=== PATIENT | female | born 1960 | race Caucasian/White ===

== ENCOUNTER 2016-10-20 08:06 | Inpatient (IN) | payer OTHER ==
[~2016-10-20] VITALS: Ht 167.6 cm; Wt 87.2 kg
[2016-10-20] MEDS ORDERED: LISI10TA PO (08:44)
[2016-10-27] MEDS ORDERED: NEOSTIGMINE 3 MG/3 ML SYR IV ONE (07:58)
[2016-10-27] MEDS ORDERED: PHENYLEPH/NS 1000 MCG/10 ML SYR IV ONE (07:58)
[2016-10-27] MEDS ORDERED: ONDANSETRON HCL 4 MG/2 ML VIAL IV PUSH ONE (07:58)
[2016-10-27] MEDS ORDERED: PROPOFOL 200 MG/20 ML AMP IV ONE (07:58)
[2016-10-27] MEDS ORDERED: LACTATED RINGER'S 1000 ML INJ 1,000 ML IV ONE (07:59)
--- NOTE | 2016-10-27 11:39 | PD.HP.UP ---
H&P Update Note The Pre-Admit History and Physical Examination regarding the above named patient was reviewed (including, but not limited to, vital signs, heart, lungs, co-morbid conditions), and upon re-examination it is noted that: the patient's condition has not significantly changed since the last examination. Joseph Teran MD Oct 27, 2016 11:38
[2016-10-27 12:05] VITALS: BP 115/75; PULSE 73; RESP 20; TEMP 97.3; O2SAT 98
[2016-10-27] MEDS ORDERED: ceFAZolin INJ 1,000 MG VIAL ONE (12:16)
[2016-10-27] MEDS ORDERED: SODIUM CHLORIDE 0.9% INJ 100 ML ONE (12:16)
[2016-10-27] MEDS ORDERED: ALVIMOPAN 12 MG CAPSULE ONE (12:16)
[2016-10-27] MEDS ORDERED: metroNIDAZOLE 500 MG INJ 100 ML IV ONE (12:16)
[2016-10-27] MEDS ORDERED: LACTATED RINGER'S 1000 ML INJ 1,000 ML ONE (12:16)
[2016-10-27] MEDS ORDERED: BUPIVACAINE HCL PF 0.5% 30 ML VIAL ONE ×3 (13:26→15:01)
--- NOTE | 2016-10-27 15:26 | HHI.PR ---
Immediate Post Op Note Procedure Date: Oct 27, 2016 Pre Op Diagnosis: [place]-vesical fistula Post Op Diagnosis: same Surgeon: Joseph Teran Project Scientist(s): Ginger Procedure: Exploratory lap + LAR, omental flap Findings: seg of rectosigm stuck to apex of vaginal c/w fistula liver/GB normal ut/ov absent full lt mobilization Complications: none Specimen(s) removed: rectosigm Estimated blood loss: 100cc Anesthesia: General Drains: SABIHA IVF Patient to: PACU Patient Condition: Good Joseph Teran MD Oct 27, 2016 15:25
[2016-10-27] MEDS ORDERED: Post-op Orders (for Pharmacy) MISC XX ONE (15:30)
[2016-10-27] MEDS ORDERED: ACETAMINOPHEN/HYDROcodone 325 MG/5 MG TAB PO PRN (15:30)
[2016-10-27] MEDS ORDERED: BENZOCAINE 6 MG/MENTHOL 10 MG LOZENGE SUCK-ON PRN (15:30)
[2016-10-27] MEDS ORDERED: ENALAPRILAT 2.5 MG/2 ML VIAL IV PRN (15:30)
[2016-10-27] MEDS ORDERED: KETOROLAC TROMETHAMINE 30 MG/ML (IVP) VIAL IVP PRN (15:30)
[2016-10-27] MEDS ORDERED: BUPIVACAINE HCL PF 0.5% 30 ML VIAL NB SCH (15:30)
[2016-10-27] MEDS ORDERED: POTASSIUM CHLOR 20 MEQ PREMIX 100 ML IV PRN (15:30)
[2016-10-27] MEDS ORDERED: POTASSIUM CHLOR 40 MEQ PREMIX 100 ML IV PRN (15:30)
[2016-10-27] MEDS ORDERED: NALOXONE HCL 0.4 MG/ML AMP IV PRN (15:30)
[2016-10-27] MEDS ORDERED: ENALAPRILAT 1.25 MG/ML VIAL IV PRN (15:30)
[2016-10-27] MEDS ORDERED: SODIUM CHLORIDE 0.9% FLUSH 5 ML FLUSH IVF PRN (15:30)
[2016-10-27] MEDS ORDERED: *morphine SULFATE 8 MG/ML PERIprocedure ONLY ONE ×3 (15:34→16:03)
[2016-10-27] MEDS ORDERED: ACETAMINOPHEN 1000 MG/100 ML VIAL IV ONE (15:35)
[2016-10-27] MEDS ORDERED: fentaNYL CITRATE 250 MCG/5 ML AMP ONE (15:38)
[2016-10-27] MEDS: MORPHINE SULFATE 30 MG/30 ML PCA IV SCH (16:00)
[2016-10-27] MEDS: D5-NS + KCL 20 MEQ INJ 1,000 ML IV SCH ×2 (16:00→22:34)
[2016-10-27 17:30] VITALS: PULSE 74
[2016-10-27 17:42] VITALS: BP 118/78; PULSE 74; RESP 14; TEMP 97.5; O2SAT 95
[2016-10-27 19:00] VITALS: BP 91/60; PULSE 80; RESP 18; TEMP 97.8; O2SAT 95
[2016-10-27 19:39] VITALS: O2SAT 95
[2016-10-27] MEDS: SODIUM CHLORIDE 0.9% FLUSH 5 ML FLUSH IVF SCH (20:10)
[2016-10-27] MEDS: METOCLOPRAMIDE HCL 10 MG/2 ML VIAL IVS SCH (20:10)
[2016-10-27] MEDS: metroNIDAZOLE 500 MG INJ 100 ML IV SCH (20:10)
[2016-10-27 23:00] VITALS: BP 100/60; PULSE 81; RESP 18; TEMP 98.2; O2SAT 94
[2016-10-28] VITALS (8 sets, daily range): BP systolic 104–131; BP diastolic 59–77; PULSE 88–106; RESP 18–20; TEMP 97.7–98.3; O2SAT 93–97
[2016-10-28] MEDS: D5-NS + KCL 20 MEQ INJ 1,000 ML IV SCH ×4 (04:00→20:32)
[2016-10-28] MEDS: metroNIDAZOLE 500 MG INJ 100 ML IV SCH ×2 (05:00→13:28)
[2016-10-28 05:08] LABS: AUTOMATED NEUTROPHIL # 16.8 TH/MM3 (1.8-7.7); BASOPHIL # 0.1 TH/MM3 (0-0.2); BASOPHIL % 0.3 % (0.0-2.0); HEMO FLAGS DIFF FINAL; LYMPH % 3.5 % (9.0-44.0); LYMPHOCYTE # 0.7 TH/MM3 (1.0-4.8); MEAN CELL VOLUME 92.4 FL (80.0-100.0); MEAN CORPUSCULAR HEMOGLOBIN 30.8 PG (27.0-34.0); MEAN CORPUSCULAR HGB CONC 33.4 % (32.0-36.0); MONO % 6.4 % (0.0-8.0); NEUT % 89.8 % (16.0-70.0); PLATELET COUNT 363 TH/MM3 (150-450); RED BLOOD COUNT 4.54 MIL/MM3 (4.00-5.30); RED CELL DISTRIBUTION WIDTH 13.7 % (11.6-17.2); WHITE BLOOD COUNT 18.8 TH/MM3 (4.0-11.0)
[2016-10-28 05:39] LABS: BICARBONATE 26.9 MEQ/L (21.0-32.0); POTASSIUM 4.7 MEQ/L (3.5-5.1)
[2016-10-28] MEDS: ONDANSETRON HCL 4 MG/2 ML VIAL IV PRN (06:35)
[2016-10-28] MEDS: PANTOPRAZOLE SOD 40 MG DELAYED RELEASE TAB PO SCH (09:00)
[2016-10-28] MEDS ORDERED: NON-FORMULARY DRUG (Lisinopril-Hctz 1 TAB) PO SCH (09:00)
[2016-10-28] MEDS: MORPHINE SULFATE 30 MG/30 ML PCA IV SCH (09:04)
[2016-10-28] MEDS: PANTOPRAZOLE SODIUM 40 MG VIAL IVP SCH (09:11)
[2016-10-28] MEDS: SODIUM CHLORIDE 0.9% FLUSH 5 ML FLUSH IVF SCH ×2 (09:12→20:33)
[2016-10-28] MEDS: ALVIMOPAN 12 MG CAPSULE PO SCH ×2 (09:13→20:33)
[2016-10-28] MEDS: METOCLOPRAMIDE HCL 10 MG/2 ML VIAL IVS SCH ×2 (09:13→20:33)
[2016-10-28] MEDS: HYDROCHLOROTHIAZIDE 25 MG TAB PO SCH (09:14)
[2016-10-28] MEDS: LISINOPRIL 10 MG TAB PO SCH (09:15)
--- NOTE | 2016-10-28 13:13 | HHI.PR ---
Subjective Remarks C/R Surg POD #1 afebrile, VSS UO good SABIHA min Objective - Vital Signs Date Time Temp Pulse Resp B/P Pulse Ox O2 Delivery O2 Flow Rate FiO2 10/28/16 11:00 97.7 88 18 107/63 93 10/28/16 07:00 Nasal Cannula 2.00 Result Diagram: 10/28/164 10/28/16443 Objective Remarks PE alert Abd - soft, flat, wound dry A/P Assessment and Plan Imp: stable post-op OOB decr IVF tx to floor Joseph Teran MD Oct 28, 2016 13:13
[2016-10-28] MEDS: PCA - TOTAL MG MORPHINE DELIVERED PER SHIFT SCH ×2 (14:00→20:34)
[2016-10-28] MEDS: ACETAMINOPHEN 325 MG TAB PO PRN (20:33)
[2016-10-29] VITALS (11 sets, daily range): BP systolic 115–146; BP diastolic 70–92; PULSE 85–106; RESP 20; TEMP 97.8–98.9; O2SAT 93–97
[2016-10-29] MEDS: ACETAMINOPHEN 325 MG TAB PO PRN ×2 (03:32→19:17)
[2016-10-29] MEDS: PCA - TOTAL MG MORPHINE DELIVERED PER SHIFT SCH ×2 (06:00→14:00)
[2016-10-29 06:32] LABS: AUTOMATED NEUTROPHIL # 12.4 TH/MM3 (1.8-7.7); BASOPHIL % 0.2 % (0.0-2.0); EOSINOPHIL % 0.1 % (0.0-4.0); HEMATOCRIT 34.9 % (35.0-46.0); HEMO FLAGS DIFF FINAL; LYMPH % 12.3 % (9.0-44.0); LYMPHOCYTE # 1.9 TH/MM3 (1.0-4.8); MEAN CELL VOLUME 91.9 FL (80.0-100.0); MEAN CORPUSCULAR HEMOGLOBIN 30.9 PG (27.0-34.0); MEAN CORPUSCULAR HGB CONC 33.6 % (32.0-36.0); MONO % 9.4 % (0.0-8.0); PLATELET COUNT 289 TH/MM3 (150-450); RED CELL DISTRIBUTION WIDTH 13.9 % (11.6-17.2); WHITE BLOOD COUNT 15.8 TH/MM3 (4.0-11.0)
[2016-10-29 06:58] LABS: BICARBONATE 29.3 MEQ/L (21.0-32.0); POTASSIUM 4.1 MEQ/L (3.5-5.1)
[2016-10-29] MEDS: D5-NS + KCL 20 MEQ INJ 1,000 ML IV SCH ×2 (07:18→12:02)
[2016-10-29] MEDS: PANTOPRAZOLE SODIUM 40 MG VIAL IVP SCH (09:24)
[2016-10-29] MEDS: METOCLOPRAMIDE HCL 10 MG/2 ML VIAL IVS SCH (09:24)
[2016-10-29] MEDS: SODIUM CHLORIDE 0.9% FLUSH 5 ML FLUSH IVF SCH ×2 (09:24→20:40)
[2016-10-29] MEDS: ALVIMOPAN 12 MG CAPSULE PO SCH ×2 (09:24→20:40)
[2016-10-29] MEDS: HYDROCHLOROTHIAZIDE 25 MG TAB PO SCH (09:25)
[2016-10-29] MEDS: PANTOPRAZOLE SOD 40 MG DELAYED RELEASE TAB PO SCH (09:25)
[2016-10-29] MEDS: LISINOPRIL 10 MG TAB PO SCH (09:25)
[2016-10-29] MEDS ORDERED: PNEUMOCOCCAL POLYVALENT INJ 25 MCG/0.5 ML SYR IM ONE (10:00)
[2016-10-29] MEDS: MORPHINE SULFATE 30 MG/30 ML PCA IV SCH (17:22)
[2016-10-29] MEDS ORDERED: METOCLOPRAMIDE HCL 10 MG/2 ML VIAL IVS PRN (18:15)
[2016-10-29] MEDS: ACETAMINOPHEN/HYDROcodone 325 MG/5 MG TAB PO PRN (20:44)
--- NOTE | 2016-10-29 22:04 | HHI.PR ---
Subjective Remarks C/R Surg POD #2 afebrile, VSS UO good SABIHA mod Objective - Vital Signs Date Time Temp Pulse Resp B/P Pulse Ox O2 Delivery O2 Flow Rate FiO2 10/29/16 20:00 98.4 88 20 146/91 94 10/29/16 20:00 Room Air 10/28/16 07:00 2.00 Result Diagram: 10/29/16 0536 10/29/16 05 Objective Remarks PE alert Abd - soft, flat, wound dry, +flatus A/P Assessment and Plan Imp: stable post-op OOB decr IVF adv diet leave Joseph Agee MD Oct 29, 2016 22:04
[2016-10-30] MEDS: ACETAMINOPHEN/HYDROcodone 325 MG/5 MG TAB PO PRN ×5 (01:26→22:35)
[2016-10-30] MEDS: D5-NS + KCL 20 MEQ INJ 1,000 ML IV SCH ×2 (01:27→19:51)
[2016-10-30 01:45] VITALS: BP 140/84; PULSE 91; RESP 18; TEMP 97.3; O2SAT 94
[2016-10-30] MEDS: LISINOPRIL 10 MG TAB PO SCH (07:53)
[2016-10-30] MEDS: PANTOPRAZOLE SOD 40 MG DELAYED RELEASE TAB PO SCH (07:53)
[2016-10-30] MEDS: ALVIMOPAN 12 MG CAPSULE PO SCH ×2 (07:53→21:01)
[2016-10-30] MEDS: HYDROCHLOROTHIAZIDE 25 MG TAB PO SCH (07:54)
[2016-10-30] MEDS: PANTOPRAZOLE SODIUM 40 MG VIAL IVP SCH (07:54)
[2016-10-30] MEDS: SODIUM CHLORIDE 0.9% FLUSH 5 ML FLUSH IVF SCH ×2 (07:54→21:02)
[2016-10-30 08:00] VITALS: BP 119/75; PULSE 98; RESP 20; TEMP 96.2; O2SAT 95
--- NOTE | 2016-10-30 09:40 | HHI.PR ---
Subjective Remarks Tolerating liquids but had Nausea and small emesis this AM. No BMs. Objective Vital Signs Date Time Temp Pulse Resp B/P Pulse Ox O2 Delivery O2 Flow Rate FiO2 10/30/16 08:00 96.2 98 20 119/75 95 10/30/16 02:26 20 10/30/16 02:00 Room Air 10/30/16 01:45 97.3 91 18 140/84 94 10/29/16 20:00 98.4 88 20 146/91 94 10/29/16 20:00 96 Room Air 10/29/16 17:22 18 10/29/16 15:00 98.2 93 20 143/89 95 10/29/16 15:00 94 10/29/16 14:00 20 10/29/16 11:00 85 10/29/16 11:00 98.0 96 20 142/92 97 I/O 10/29/16 10/29/16 10/29/16 10/30/16 10/30/16 10/30/16 07:00 15:00 23:00 07:00 15:00 23:00 Intake Total 1040 ml 1627 ml 240 ml Output Total 360 ml 3150 ml 2000 ml Balance 680 ml -1523 ml -1760 ml Intake Oral 240 ml 720 ml 240 ml IV Total 800 ml 907 ml Output Urine Total 350 ml 3100 ml 2000 ml Drainage Total 10 ml 50 ml # Voids 1 # Bowel Movements 0 0 0 Result Diagram: 10/29/16 0536 10/29/1636 Objective Remarks VS-S Abd: soft,wound clean. Sitting in chair. I&Os OK Assessment and Plan Assessment and Plan Stable POD#3 Not ready for D/C. Advance to soft diet. Ambulate. Continue lurdes, SABIHA, and On-Q till empty Rodri Verde MD Oct 30, 2016 09:40
[2016-10-30 12:00] VITALS: BP 123/73; PULSE 94; RESP 20; TEMP 96.6; O2SAT 95
[2016-10-30] MEDS: ONDANSETRON HCL 4 MG/2 ML VIAL IV PRN (12:18)
[2016-10-30 16:00] VITALS: BP 147/83; PULSE 92; RESP 20; TEMP 97.2; O2SAT 95
[2016-10-30 20:00] VITALS: BP 133/74; PULSE 87; RESP 18; TEMP 97.9; O2SAT 98
[2016-10-30 23:51] VITALS: BP 130/77; PULSE 89; RESP 18; TEMP 98.6; O2SAT 96
[2016-10-31] MEDS: ACETAMINOPHEN/HYDROcodone 325 MG/5 MG TAB PO PRN ×3 (03:27→14:03)
[2016-10-31] MEDS: HYDROCHLOROTHIAZIDE 25 MG TAB PO SCH (07:52)
[2016-10-31] MEDS: ALVIMOPAN 12 MG CAPSULE PO SCH (07:52)
[2016-10-31] MEDS: PANTOPRAZOLE SODIUM 40 MG VIAL IVP SCH (07:53)
[2016-10-31] MEDS: PANTOPRAZOLE SOD 40 MG DELAYED RELEASE TAB PO SCH (07:53)
[2016-10-31] MEDS: LISINOPRIL 10 MG TAB PO SCH (07:53)
[2016-10-31] MEDS: SODIUM CHLORIDE 0.9% FLUSH 5 ML FLUSH IVF SCH (07:54)
[2016-10-31 08:00] VITALS: BP 133/79; PULSE 93; RESP 20; TEMP 95.7; O2SAT 93
[2016-10-31] MEDS: ONDANSETRON HCL 4 MG/2 ML VIAL IV PRN (08:33)
[2016-10-31] MEDS: D5-NS + KCL 20 MEQ INJ 1,000 ML IV SCH (10:27)
--- NOTE | 2016-10-31 11:21 | HHI.DCPOC ---
Discharge Care Plan Your Health Problems Are: Incision/Drains Appetite Changes Irregular Bowel Function Exercise Tolerance Goals to Promote Your Health * To prevent worsening of your condition and complications * To maintain your health at the optimal level Directions to Meet Your Goals Take your medications as prescribed Follow your dietary instruction Follow activity as directed Keep your appointments as scheduled Take your immunizations and boosters as scheduled If your symptoms worsen call your PCP, if no PCP go to Urgent Care Center or Emergency Room Smoking is Dangerous to Your Health. Avoid second hand smoke Call the 24-hour hour crisis hotline for domestic abuse at Rodri Verde MD Oct 31, 2016 11:21
[2016-10-31 12:00] VITALS: BP 129/76; PULSE 87; RESP 18; TEMP 96.4; O2SAT 96
--- NOTE | 2016-11-01 11:10 | MP ---
cc: INES LO M.D. DATE OF SURGERY November 01, 2016 PREOPERATIVE DIAGNOSIS Colovaginal fistula. PROCEDURE Exploratory laparotomy with proctosigmoidectomy and low pelvic anastomosis, omental flap. POSTOPERATIVE DIAGNOSIS Diverticular disease with colovaginal fistula. SURGEON Dr. Lo ACADEMIC ADMINISTRATOR Dr. Ian Miles PROCEDURE The patient was placed in the supine position. After adequate general anesthesia, her legs were placed in [place] stirrups and supported appropriately. The abdomen and perineum were then prepped with Betadine solution and draped in the usual sterile fashion. With Dr. Miles's assistance the abdomen was opened through an infraumbilical transverse incision dividing the rectus muscles with electrocautery. Exploration revealed thickening and chronic changes of the sigmoid/rectosigmoid colon which appeared to be stuck down to the left pelvic sidewall and to the vaginal apex. There were no acute inflammatory changes. The proximal colon was palpated and felt to be pretty unremarkable. The small bowel was run from ligament of Treitz down to the ileocecal valve and felt to be normal. The liver was unremarkable. The stomach and duodenum were normal. The uterus and ovaries were surgically absent. The gallbladder was unremarkable as well. First the sigmoid colon was mobilized medially by dividing along the white line of Toldt. The left ureter was identified and carefully preserved. Dissection then proceeded up the left gutter taking down attachments to the retroperitoneum, mobilizing the splenic flexure, entering the lesser sac, taking the gastrocolic omentum off the transverse colon. The right retroperitoneal space was then opened and the bowel dissected off the presacral fascia. The pedicle for the superior hemorrhoidal vessel was identified and divided between Adore's obtaining hemostasis with Vicryl ties. The left colic vessels were similarly taken and ligated with Vicryl ligatures. After full mobilization, the rectum was dissected off the presacral fascia down to the pelvic floor. Anteriorly there appeared to be adhesions between the colon and the vaginal apex and these were divided, releasing the attachments to the vaginal apex. At a point in the proximal rectum, the mesorectum was taken between Adore's, ligating the proximal end with a Vicryl tie. The bowel was then finally divided between a pursestring suture device and a Ceasar clamp. The colon was incised to reach the rectal pouch without tension and with good blood supply, dividing the marginal artery at the appropriate point. The bowel was then divided between a pursestring suture device and a Ceasar clamp. The end of the bowel was sized to accept an EEA stapling anvil and this was secured with a pursestring suture. Dr. Miles then inserted the EEA stapling instrument transanally under direct vision. It was brought up to the end of the rectal pouch and the pursestring suture tied. The stapler was then reassembled, the bowel aligned properly, the stapler closed and fired. Upon withdrawal two complete doughnuts of tissue was seen. Gentle insufflation did confirm an airtight anastomosis. The abdomen was then irrigated copiously with normal saline. A weakened area in the bladder dome was oversewn with a running 3-0 chromic catgut suture and reinforced with a 3-0 Vicryl suture along the muscle layer, muscle and peritoneum. A Sabino-Patel drain was then placed down into the presacral space and brought up through a stab wound in the right lower quadrant, secured to the skin with a nylon suture. The omentum was passed down the left gutter and wrapped around the anastomosis and from the vaginal apex and previous fistulous opening. The transverse incision was then closed anatomically in two layers using #1 PDS sutures to reapproximate the respective fascial layers. On-Q catheters were placed into the rectus sheath on both sides and brought up through subcutaneous tunnels above the transverse incision. The subcu tissue was irrigated copiously and the skin closed with a running subcuticular Vicryl suture. The wound area was washed with normal saline and dried, sterile dressing of Telfa and gauze applied. The patient tolerated the procedure quite well and was brought to the recovery room in stable condition. Sponge and needle counts were correct at the end of the procedure. MD ANY Portillo/KADY /11:16 PM /10:01 AM
--- NOTE | 2016-12-14 13:30 | MD ---
cc: INES LO M.D., GOAR MD ADMISSION DATE: 10/27/2016 DISCHARGE DATE: 10/31/2016 PROCEDURE NOTE October 27, 2016, exploratory laparotomy with proctosigmoidectomy, low pelvic anastomosis, omental flap. DISCHARGE DIAGNOSES Diverticular disease with colovaginal fistula. HISTORY OF PRESENT ILLNESS Ms. Gallego is a 56-year-old female who is in relatively good health noticing stool coming from her vagina now for several weeks. She has a pressure sensation in the lower abdomen as well. UA has showed several urinary tract infections. Normally goes to the bathroom in small amounts. Denies any fever. No nausea or vomiting. No abdominal distension. Denies any rectal bleeding. Stool control is fairly good. Does not require a pad except for the vaginal discharge. No rectal prolapse or melena. Appetite good. Preop colon evaluation was pretty unremarkable with a fistula seen in the apex of the vagina. The patient's appetite has been good. Her weight has been stable at about 188 pounds. The patient is admitted at this time for definitive surgical resection. Please see her history and physical for more complete past medical and surgical history. PERTINENT PHYSICAL This is a very pleasant well-developed female in no acute distress. ABDOMEN: Very soft and benign. No distension, rebound, guarding or any masses noted. ANAL INSPECTION: Revealed benign canal. Digital exam reveals good tone with some thickening in the pelvis, but no mucosal irregularity and no blood on the finger. HOSPITAL COURSE After admission, the patient was taken to the operating room on October 27, 2016 at which point she underwent an exploratory laparotomy with proctosigmoidectomy and low pelvic anastomosis and omental flap. She was found to have a very narrow, very limited segment of rectosigmoid stuck to the apex of the vagina consistent with the colovaginal fistula. The remainder of the abdominal exploration was pretty unremarkable. She tolerated the procedure quite well. Her GI tract function returned fairly promptly and her diet was advanced accordingly. She was able to ambulate with minimal assistance. Bowel function continued to improve. Her [place] catheter was discontinued and she had no trouble voiding. The patient was ambulating, having stools and considered ready for discharge home on the October 31, 2016. Final pathology report did show a segment of rectosigmoid with diverticular disease and pinpoint transmural defect consistent with a colovaginal fistula. No malignancy was identified. DISCHARGE INSTRUCTIONS The patient was discharged eating a regular diet. She was encouraged to ambulate daily avoiding any heavy lifting or straining. All preop medications were to be resumed. The patient will be seen in the office in one weeks' time for routine follow-up. Any problems prior to the scheduled office visit, she was encouraged to call for more urgent attention. MD ANY Portillo/MIHIR /8:52 PM /1:23 PM
== END 2016-10-31 16:00 | disposition home or self-care (01) | DRG 330 ==
LOC: HSDI 10-27 10:59 → EDUNIT# 10-27 13:00 → HCVR 10-27 17:27 → HCIS 10-28 16:58 → N07B 10-30 01:02
PROVIDERS: ADMIT Colon & Rectal Surgery; ATTEND Colon & Rectal Surgery
PROC: 0DBN0ZZ Excision of Sigmoid Colon, Open Approach (ICD-10-PCS; 2016-10-27)
PROC: 0DBP0ZZ Excision of Rectum, Open Approach (ICD-10-PCS; principal; 2016-10-27 13:00)
DX: K57.30 Diverticulosis of large intestine without perforation or abscess without bleeding (principal); N82.3 Fistula of vagina to large intestine; I10 Essential (primary) hypertension; R11.2 Nausea with vomiting, unspecified; Z87.891 Personal history of nicotine dependence
CPT/HCPCS: 80048; 85025; 86850; 86900; 86901; 88307; 94150; C9113; J0131; J0690; J2270; J2370; J2405; J2710; J2765; J3010; J3480; J7120

== ENCOUNTER → 2016-10-20 | Outpatient (CLI) | payer OTHER ==
[~2016-10-20] MED LIST: LISI10TA PO
[2016-10-20 08:52] LABS: AUTOMATED NEUTROPHIL # 3.6 TH/MM3 (1.8-7.7); BASOPHIL # 0.1 TH/MM3 (0-0.2); EOSINOPHIL # 0.2 TH/MM3 (0-0.4); EOSINOPHIL % 3.1 % (0.0-4.0); HEMATOCRIT 45.7 % (35.0-46.0); HEMO FLAGS DIFF FINAL; LYMPHOCYTE # 3.3 TH/MM3 (1.0-4.8); MEAN CELL VOLUME 92.4 FL (80.0-100.0); MEAN CORPUSCULAR HEMOGLOBIN 30.8 PG (27.0-34.0); MEAN CORPUSCULAR HGB CONC 33.3 % (32.0-36.0); MONO % 9.2 % (0.0-8.0); NEUT % 45.7 % (16.0-70.0); PLATELET COUNT 400 TH/MM3 (150-450); RED BLOOD COUNT 4.95 MIL/MM3 (4.00-5.30); RED CELL DISTRIBUTION WIDTH 13.9 % (11.6-17.2)
[2016-10-20 09:06] LABS: BLOOD, URINE NEG (NEG); COMMENT (UR) CULT NOT INDICATED; CULTURE IF INDICATED CULT NOT INDICATED; GLUCOSE,URINE NEG (NEG); KETONE, URINE NEG (NEG); MUCUS URINE FEW /lpf (OCC); NITRITE,URINE NEG (NEG); PH, URINE 5.5 (5.0-8.5); SQUAMOUS EPITHELIAL CELL URINE 2 /hpf (0-5); URINE COLOR LIGHT-YELLOW (YELLW/STRAW)
[2016-10-20 09:06] LABS: APTT (PATIENT) 28.2 SEC (24.3-30.1); PROTHROMBIN TIME - PATIENT 10.5 SEC (9.8-11.6)
[2016-10-20 09:18] LABS: ANION GAP 5 MEQ/L (5-15); AST (GOT) 10 U/L (15-37); BICARBONATE 31.2 MEQ/L (21.0-32.0); BLOOD UREA NITROGEN 20 MG/DL (7-18); CHLORIDE 103 MEQ/L (98-107); GLOMERULAR FILTRATION RATE 64 ML/MIN (>89); GLUCOSE,FASTING 93 MG/DL (74-99); POTASSIUM 4.6 MEQ/L (3.5-5.1); SODIUM (NA) 139 MEQ/L (136-145)
--- NOTE | 2016-10-20 09:20 | RADRPT ---
EXAM DATE/TIME: 10/20/2016 09:05 [place] COMPARISON: No previous studies available for comparison. INDICATIONS : Evaluate for penumonia, pneumothorax, or communicable disease. Pre op for removal of vaginal rectal f istula. MEDICAL HISTORY : None. SURGICAL HISTORY : None. ENCOUNTER: Initial ACUITY: 1 day PAIN SCORE: 0/10 LOCATION: chest FINDINGS: PA and lateral views of the chest demonstrate the lungs to be symmetrically aerated without evidence of mass, infiltrate or effusion. The cardiomediastinal contours are unremarkable. Osseous structure s are intact. CONCLUSION: No acute disease. Milton Palmer MD FACR on October 20, 2016 at 9:18 Board Certified Radiologist. This report was verified electronically.
[2016-10-20 09:21] LABS: ALKALINE PHOSPHATASE 85 U/L (45-117); ALT (GPT) 28 U/L (10-53); TOTAL BILIRUBIN ADULT 0.4 MG/DL (0.2-1.0)
--- NOTE | 2016-10-22 00:07 | EKG ---
Date Performed: 10/20/2016 Time Performed: 08:34:29 PTAGE: 56 years EKG: Sinus rhythm WITH SINUS ARRHYTHMIA NORMAL ECG NO PREVIOUS TRACING DOCTOR: Jamison Gaffney Interpretating Date/Time 10/22/2016 00:06:41
== END ==
LOC: CPRE 08:01
PROVIDERS: ATTEND Colon & Rectal Surgery
DX: Z01.810 Encounter for preprocedural cardiovascular examination (principal); Z01.811 Encounter for preprocedural respiratory examination; Z01.812 Encounter for preprocedural laboratory examination; N82.3 Fistula of vagina to large intestine
CPT/HCPCS: 36415; 71020; 80053; 81001; 85025; 85610; 85730; 93005